=== PATIENT | female | born 1990 | race African-American/Black ===

== ENCOUNTER 2018-08-26 10:29 | Emergency (ER) | payer OTHER ==
[2018-08-26 10:48] LABS: #Lymphocytes 0.9 thou/uL (1.20-3.40); #Monocytes 0.2 thou/uL (0.11-0.59); #Neutrophils 3.5 thou/uL (1.40-6.50); %Eosinophils 0.1 % (0.0-10.0); %Lymphocytes 19.7 % (21.0-51.0); %Monocytes 4.4 % (0.0-10.0); %Neutrophils 74.8 % (42.0-75.0); Mean Corpuscular HGB CONC 30.5 g/dL (32.0-36.0); Mean Corpuscular Hemoglobin 19.4 pg (27.0-31.0); Mean Corpuscular Volume 63.5 fL (78.0-98.0); Mean Platelet Volume 11.2 fL (7.4-10.4); Platelet Count 399 thou/uL (130-400); RBC Distribution Width 19.4 % (11.5-14.5); Red Blood Cell (RBC) Count 4.13 mill/uL (4.20-5.40); White Blood Cell (WBC) Count 4.7 thou/uL (4.8-10.8)
[2018-08-26 11:12] LABS: ALT (SGPT) 11 U/L (8-55); AST (SGOT) 31 U/L (5-34); Albumin 4.3 g/dL (3.5-5.0); Alkaline Phosphatase 101 U/L (40-150); Anion Gap 11 mmol/L (10-20); BUN (Urea Nitrogen) 10 mg/dL (7.0-18.7); Bilirubin, Total 0.3 mg/dL (0.2-1.2); Calc. Creatinine Clearance 0 mL/min (70-130); Calcium 9.2 mg/dL (7.8-10.44); Carbon Dioxide 21 mmol/L (22-29); Chloride 108 mmol/L (98-107); Estimated GFR-MDRD Greater than 90; Globulin 3.2 g/dL (2.4-3.5); Glucose 80 mg/dL (70-105); Potassium 4.1 mmol/L (3.5-5.1); Protein, Total 7.5 g/dL (6.0-8.3); Sodium 136 mmol/L (136-145)
[2018-08-26 11:17] LABS: Hypochromia MODERATE=16-30 cells (100X) (0-5/hpf); MDiff Complete? YES; Microcytosis MODERATE=15-30 cells (100X) (0-5/hpf); Ovalocytes MODERATE= 6-15 cells (100X) (0-1/hpf); Platelet Morphology Comment Appears Adequate; Polychromasia MODERATE = 3-4 cells (100X) (0-2/hpf); Reflex for Review?? YES; Tear Drops SLIGHT = 2-5 cells (100X) (0-1/hpf)
[2018-08-26 12:22] LABS: BHCG - Serum Negative (NEGATIVE); Pregs Control Background? CLEAR/WHITE (CLR/WHITE); Pregs Control Bar Appear? YES (CONTROL BAR)
[2018-08-26 12:45] LABS: Hemoglobin 7.2 g/dL (12.0-16.0)
[2018-08-26] MEDS ORDERED: Tranexamic Acid 650 MG TAB PO SCH (13:30)
--- NOTE | 2018-08-26 14:22 | ULT ---
PELVIC ULTRASOUND: 08/26/18 HISTORY: Heavy menstrual cycles. Real time imaging of the pelvis was obtained transabdominally. This shows a uterus measuring 5.3 x 5. 3 x 8.4 cm. Endometrium is thickened at 7 mm. There is a questionable small fibroid measuring in the 2 cm range. The uterus itself is heterogeneous. The patient refused a transvaginal exam which would have been helpful in better assessment. The right and left adnexa are difficult to visualize but appear unremarkable. Doppler evaluation with spectral analysis: Normal flow is shown to both adnexa. IMPRESSION: Heterogeneous appearing uterus with a probable fibroid along the anterior wall of the uterus measurin g in the 2 cm range, difficult to assess. The patient refused the transvaginal exam. POS: OFF
== END 2018-08-26 16:46 | disposition home or self-care (01) ==
LOC: ERS 10:29
DX: D64.9 Anemia, unspecified (principal); N94.6 Dysmenorrhea, unspecified; F41.9 Anxiety disorder, unspecified; F32.9 Major depressive disorder, single episode, unspecified; Z79.899 Other long term (current) drug therapy
CPT/HCPCS: 36415; 36430; 76856; 80053; 84703; 85025; 85060; 86850; 86900; 86901; P9016